=== PATIENT | male | born 1965 ===

== ENCOUNTER 2022-02-23 23:11 | Emergency (ER) | payer OTHER ==
[~2022-02-23] VITALS: Ht 172.7 cm; Wt 66.2 kg
[2022-02-24] MEDS ORDERED: BIKTARVY 50-201 EACH (01:18)
[2022-02-24] MEDS ORDERED: DOLOGESIC 500-1 EACH PO (06:02)
[2022-02-24] MEDS ORDERED: OSEL75CA PO (06:02)
[2022-02-24] MEDS ORDERED: ZITHROMAX500 MG PO (06:02)
== END 2022-02-24 06:14 | disposition home or self-care (01) ==
LOC: ER 23:11
DX: J10.1 Influenza due to other identified influenza virus with other respiratory manifestations (principal); R50.9 Fever, unspecified; Z20.828 Contact with and (suspected) exposure to other viral communicable diseases